=== PATIENT | female | born 1940 | race Caucasian/White ===

== ENCOUNTER → 2018-03-10 10:02 | Outpatient (CLI) | payer MEDICARE, SELFPAY ==
--- NOTE | 2018-03-10 | DI.MG.S_ITS ---
BILATERAL DIGITAL SCREENING MAMMOGRAM 3D/2D WITH CAD: 03/10/2018 CLINICAL: Routine screening. Comparison is made to exams dated: 09/28/2014 mammogram, 09/22/2013 mammogram, and 08/24/2012 mammogram - [facility]. The tissue of both breasts is heterogeneously dense. This may lower the sensitivity of mammography. Current study was also evaluated with a Computer Aided Detection (CAD) system. No significant masses, calcifications, or other findings are seen in either breast. There has been no significant interval change. IMPRESSION: NEGATIVE There is no mammographic evidence of malignancy. A 1 year screening mammogram is recommended. This exam was interpreted at Station ID: [id number]. NOTE: For mammograms, a report in lay terms will be sent to the patient. Approximately 15% of breast malignancies will not be visualized mammographically. In the management of a palpable breast mass, a negative mammogram must not discourage biopsy of a clinically suspicious lesion. Electronically Signed By: Rizwan tomas/bob:03/10/2018 21:45:23 letter sent: Normal Exam ACR BI-RADS Category 1: Negative [id number]
--- NOTE | 2018-03-10 | DI.ECHO.S_ITS ---
[place] [facility]---------+ [facility] +---------+ : : [address] : : : : [id number] : : : : Phone: [phone]---------+ Echocardiogram Report + + :Name: JENNIFER GARCIA Study Date: 03/10/2018 Height: 65 in : :[facility] Exam Location: IS Weight: 115 lb : : Gender: Female BSA: 1.6 m2 : :: 1940 Age: 77 yrs BP: 140/64 mmHg: :Reason For Study: : :Ordering Physician: Dr. Gonzalez : :[place] Performed By: Jessica Xie : :Referring: FITZ GRIFFITH : + + Interpretation Summary The left ventricle is normal in size. The ejection fraction is estimated to be 60-65%. There has been no significant change in LV EF since the previous study. The right ventricle is normal in size and function. The aortic valve is moderately calcified. The aortic valve is not well visualized. The peak aortic velocity is 2.8 m/sec. The aortic valve mean gradient is 18 mmHg. The peak aortic velocity on the previous exam was 2.3 m/sec. sev ratio: 0.34 There is no hemodynamically significant valvular aortic stenosis. There is mild to moderate aortic regurgitation. Compared to the prior echo study, there has been an increase in the severity of aortic regurgitation. Procedure: A two-dimensional transthoracic echocardiogram with color flow and Doppler was performed. The study quality was technically adequate. Comparison is made with the echocardiogram of 01/09/2016. The heart rate ranged between 57-65 bpm during the study. The patient was in normal sinus rhythm during the exam. Left Ventricle: The left ventricle is normal in size. There is normal left ventricular wall thickness. A false chord is noted (normal variant). The ejection fraction is estimated to be 60-65%. There has been no significant change since the previous study. There are no focal wall motion abnormalities. Assessment of diastolic parameters indicates a relaxation abnormality of the left ventricle, consistent with normal filling pressures. Right Ventricle: The right ventricle is normal in size and function. Atria: Both atria are normal in size. Both atria have remained unchanged in size since the prior echo exam. There is no Doppler evidence for an interatrial shunt. Mitral Valve: The mitral valve leaflets appear thickened, but open well. The mitral valve leaflets are slightly calcified. There is mild mitral regurgitation. Compared to the prior echo study, there has been no change in the severity of mitral regurgitation. Aortic Valve: The aortic valve is not well visualized. The aortic valve is moderately calcified. The peak aortic velocity is 2.8 m/sec. The aortic valve mean gradient is 18 mmHg. The peak aortic velocity on the previous exam was 2.3 m/sec. There is no hemodynamically significant valvular aortic stenosis. There is mild to moderate aortic regurgitation. Compared to the prior echo study, there has been an increase in the severity of aortic regurgitation. Tricuspid Valve: The tricuspid valve is normal in structure and function. There is a trace or physiologic amount of tricuspid regurgitation. Pulmonary artery pressures cannot be estimated because of the lack of a measurable TR jet velocity. Pulmonic Valve: The pulmonic valve is not well visualized. Great Vessels: The aortic root is normal size. The ascending aorta could not be visualized. The aortic arch could not be visualized. The pulmonary is not well visualized. The IVC is of normal diameter and collapses greater than 50% with a sniff. This suggests a low right atrial pressure of 3 mm Hg. Pericardium/ Pleura There is no pericardial effusion. There is no pleural effusion. MMode/2D Measurements & Calculations LVIDd: 4.2 cm LVOT diam: 1.8 cm LVIDs: 2.7 cm Ao root diam: 2.5 cm FS: 35.5 % EPSS: 0.39 cm IVSd: 0.74 cm LVPWd: 0.76 cm LV dee. diameter/BSA (cm/m^2): 2.7 LV sys. diameter/BSA (cm/m^2): 1.7 LA A2 area: 15.0 cm2 RA long axis: 4.2 cm LA A4 area: 14.0 cm2 RA area: 10.9 cm2 LA length (vol): 4.4 cm RA vol: 24.2 ml LA vol: 40.3 ml RA : 15.5 ml/m2 LA vol index: 25.8 ml/m2 IVC diam: 1.6 cm RVD1 (basal): 2.7 cm TAPSE: 2.0 cm Doppler Measurements & Calculations Ao V2 max: 277.6 cm/sec LVOT Max Francisco: 107.3 cm/sec Ao V2 mean: 202.2 cm/sec LV V1 max P.6 mmHg Ao max P.8 mmHg LV V1 VTI: 24.4 cm Ao mean P.8 mmHg NAKUL(I,D): 0.87 cm2 Ao V2 VTI: 71.8 cm NAKUL(V,D): 0.99 cm2 sev ratio: 0.34 NAKUL indexed to BSA (cm^2/m^2): 0.56 MV E max francisco: 77.1 cm/sec MV A max francisco: 95.4 cm/sec MV E/A: 0.81 Med Peak E' Francisco: 5.7 cm/sec E/E' med: 13.6 Lat Peak E' Francisco: 5.7 cm/sec E/E' lat: 13.6 E/e' average: 13.6 MV dec time: 0.23 sec Reading Physician:MATEUS
== END ==
PROVIDERS: Family Provider Family Medicine; PCP Family Medicine; Visit Provider Family Medicine
DX: Z12.31 Encounter for screening mammogram for malignant neoplasm of breast (principal); M85.852 Other specified disorders of bone density and structure, left thigh; Z78.0 Asymptomatic menopausal state; E07.9 Disorder of thyroid, unspecified; Z90.722 Acquired absence of ovaries, bilateral
CPT/HCPCS: 77063; 77067; 77080; 93306

== ENCOUNTER → 2020-02-08 13:46 | Outpatient (CLI) | payer MEDICARE, SELFPAY | PROVIDERS: Family Provider Family Medicine; PCP Family Medicine; Referring Provider Family Medicine; Visit Provider Family Medicine | DX: M85.851 Other specified disorders of bone density and structure, right thigh (principal); Z78.0 Asymptomatic menopausal state; E07.9 Disorder of thyroid, unspecified; Z90.722 Acquired absence of ovaries, bilateral | CPT/HCPCS: 77080 ==

== ENCOUNTER → 2020-03-30 16:24 | Outpatient (CLI) | payer MEDICARE, SELFPAY | PROVIDERS: Family Provider Family Medicine; PCP Family Medicine; Referring Provider Family Medicine; Visit Provider Family Medicine | DX: Z12.31 Encounter for screening mammogram for malignant neoplasm of breast (principal); Z53.9 Procedure and treatment not carried out, unspecified reason | CPT/HCPCS: 77063; 77067 ==

== ENCOUNTER → 2021-05-05 14:03 | Outpatient (CLI) | payer MEDICARE, SELFPAY ==
--- NOTE | 2021-05-05 | DI.ECHO.S_ITS ---
[place] +---------+ [facility] +---------+ : : [address] : [address] : [address] : : : : [id number] : : : : Phone: [phone]+ Echocardiogram Report + + :Name: JENNIFER GARCIA Study Date: 05/05/2021 Height: 65 in : :[facility] ReadingLocation: Weight: 118 lb : : Gender: Female BSA: 1.6 m2 : :: 1940 Age: 81 yrs BP: 160/83 mmHg: :Reason For Study: SYMPTOMS AND SIGNS INVOLVING COGNITIVE : :FUNCTION : :Ordering Physician: NACHO, : :FITZ Performed By: Keeley Madrid : :Referring: FITZ GRIFFITH : + + Interpretation Summary The ejection fraction is estimated to be 60-65%. Diastolic parameters suggest probable normal left ventricular diastolic function and normal filling pressures. The right ventricle is normal in size and function. There is severe aortic stenosis. There is mild mitral regurgitation. Unable to estimate PASP. Compared to the prior study dated 03/10/2018, the aortic valve disease has progressed. Procedure: A two-dimensional transthoracic echocardiogram with color flow and Doppler was performed. The study quality was technically adequate. Comparison is made with the echocardiogram of 03/10/2018. The patient was in sinus rhythm with heart rates between 58-70 bpm during the exam. Left Ventricle: The left ventricle is normal in size and wall thickness. The ejection fraction is estimated to be 60-65%. Diastolic parameters suggest probable normal left ventricular diastolic function and normal filling pressures. Right Ventricle: The right ventricle is normal in size and function. Atria: Both atria are normal in size. There is no Doppler evidence for an interatrial shunt. Mitral Valve: The mitral valve leaflets appear mildly thickened, but open well. There is mild mitral regurgitation. Aortic Valve: The aortic valve is heavily calcified. There is severe aortic stenosis. The peak aortic velocity is 4.4 m/sec. The peak aortic velocity on the previous exam was 2.8 m/sec. The aortic valve mean gradient is 53 mmHg. The calculated aortic valve area is 0.76 cm2. No aortic regurgitation is present. Tricuspid Valve: The tricuspid valve is normal in structure and function. There is mild tricuspid regurgitation. Pulmonary artery pressures cannot be estimated because of the lack of a measurable TR jet velocity but the IVC suggests a CVP of around 3 mmHg. Pulmonic Valve: The pulmonic valve is not well seen, but is grossly normal. There is no pulmonic valvular regurgitation. Great Vessels: The aortic root is normal size. The dimensions of the ascending aorta are normal. The IVC is of normal diameter and collapses greater than 50% with a sniff. This suggests a low right atrial pressure of 3 mm Hg. Pericardium/ Pleura There is no pericardial effusion. There is no pleural effusion. MMode/2D Measurements & Calculations LVIDd: 4.1 cm LVOT diam: 2.0 cm LVIDs: 2.7 cm Ao root diam: 2.5 cm FS: 33.4 % Ao Arch Diam (Prox Trans): 2.4 cm IVSd: 0.79 cm LVPWd: 0.70 cm LV dee. diameter/BSA (cm/m^2): 2.6 LV sys. diameter/BSA (cm/m^2): 1.7 LA A2 area: 15.9 cm2 RA long axis: 4.7 cm LA A4 area: 12.9 cm2 RA area: 12.1 cm2 LA length (vol): 4.2 cm RA vol: 26.2 ml LA vol: 40.8 ml RA : 16.6 ml/m2 LA vol index: 25.8 ml/m2 IVC diam: 1.2 cm RVD1 (basal): 2.7 cm TAPSE: 1.8 cm Doppler Measurements & Calculations Ao V2 max: 439.9 cm/sec LVOT Max Francisco: 105.5 cm/sec Ao V2 mean: 352.4 cm/sec LV V1 max P.5 mmHg Ao max P.4 mmHg LV V1 VTI: 27.0 cm Ao mean P.6 mmHg NAKUL(I,D): 0.72 cm2 Ao V2 VTI: 114.8 cm NAKUL(V,D): 0.73 cm2 sev ratio: 0.24 NAKUL indexed to BSA (cm^2/m^2): 0.45 MV E max francisco: 95.5 cm/sec PA V2 max: 107.1 cm/sec MV A max francisco: 115.7 cm/sec PA V2 mean: 73.1 cm/sec MV E/A: 0.83 PA mean P.4 mmHg Med Peak E' Francisco: 6.2 cm/sec PA pr(Accel): 24.2 mmHg E/E' med: 15.4 Lat Peak E' Francisco: 8.6 cm/sec E/E' lat: 11.1 E/e' average: 13.2 MV dec time: 0.24 sec SV(LVOT): 82.5 ml Reading Physician:04:34 PM
--- NOTE | 2021-05-05 | DI.MRI.S_ITS ---
PROCEDURE: MR HEAD/BRAIN WO/W CON INDICATIONS: Other symptoms and signs involving cognitive funct TECHNIQUE: Noncontrast axial T1 spin echo, axial T2 fast spin echo, sagittal and axial FLAIR, coronal T2 fast spin echo, axial gradient echo, axial diffusion and ADC through the brain. After the administration of contrast, axial and coronal T1 spin echo with fat saturation through the brain. COMPARISON: [facility], , CAROTID DOPPLER , 05/05/2021, 14:26. FINDINGS: Image quality: This examination is limited by involuntary motion artifact. CSF spaces: Basal cisterns are patent. No extra-axial fluid collections. Ventricles are normal in size and shape. Brain: No midline shift. No intracranial masses. A few areas of hemosiderin deposition can be seen involving both cerebral hemispheres, as on series 10 images 12 through 18. The hemorrhage is largely seen along the surface of the brain. No abnormal intracranial enhancement. There is cerebral volume loss for age. There is periventricular white matter chronic small vessel ischemic change. The brainstem appears normal. Diffusion-weighted images demonstrate no acute ischemic insults. No chronic ischemic insults. Normal intravascular flow voids are present. Relatively prominent perivascular spaces are noted. Skull and face: Calvarial marrow is normal in signal. Orbits appear normal. Sinuses: Sinuses and mastoids appear clear. IMPRESSION: No findings of acute or subacute infarction can be seen. No masses or abnormal enhancement can be seen. Note is made of age-appropriate brain parenchymal volume loss and chronic small vessel ischemic changes. Mild areas of hemosiderin deposition can be seen, which are largely along the surface of the brain. Please correlate with patient history, including prior hemorrhage or trauma. Dictated by: Simone Arauz M.D. on 05/05/2021 at 16:37 Approved by: Simone Arauz M.D. on 05/05/2021 at 16:40
--- NOTE | 2021-05-05 | DI.US.S_ITS ---
PROCEDURE: US CAROTID DOPPLER BI INDICATIONS: OTHER SYMPTOMS INVOLVING CONGNITIVE FUNCTION TECHNIQUE: Color and pulse Doppler interrogation was performed of both carotid systems, with image documentation and velocity measurements. COMPARISON: None. FINDINGS: Stenosis calculations are based on SRU (Society of Radiologists in Ultrasound) criteria. The flow velocities and the arterial waveforms are normal within both carotid arterial systems. The estimated degree of internal carotid artery stenosis is less than 50%. Antegrade flow is confirmed within both vertebral arteries. IMPRESSION: No hemodynamically significant stenosis is seen. Dictated by: Simone Arauz M.D. on 05/05/2021 at 14:00 Approved by: Simone Arauz M.D. on 05/05/2021 at 14:00
== END ==
PROVIDERS: Family Provider Family Medicine; PCP Family Medicine; Referring Provider Family Medicine; Visit Provider Family Medicine
DX: R41.89 Other symptoms and signs involving cognitive functions and awareness (principal); I08.3 Combined rheumatic disorders of mitral, aortic and tricuspid valves
CPT/HCPCS: 70553; 93306; 93880

== ENCOUNTER → 2021-05-23 08:35 | Outpatient (CLI) | payer MEDICARE, SELFPAY ==
--- NOTE | 2021-05-23 | DI.MRI.S_ITS ---
PROCEDURE: MR STROKE Pre- and post-contrast brain MRI, non-contrast brain MR angiogram, pre- and postcontrast neck MR angiogram INDICATIONS: MEMORY/COGNITIVE CHANGES TECHNIQUE: Brain: Noncontrast axial T1 spin echo, axial T2 fast spin echo, sagittal and axial FLAIR, coronal T2 fast spin echo, axial gradient echo, axial diffusion and ADC through the brain. After the administration of contrast, axial 3D VIBE of the cranial vasculature and brain. Brain MRA: Non-contrast 3-D time of flight MR angiogram, with multiple prlwbkg-nqdiskzdi-qexxhatukx (MIP) reformats performed. Neck MRA: Axial and sagittal TruFISP through the neck. Coronal dynamic MR angiogram during administration of contrast in the arterial and venous phases, with 3-dimenstional sajwlhy-obtgplscy-kcezfksznm (MIP) reformats constructed from subtraction images. COMPARISON: [facility], MR, MR HEAD/BRAIN WO/W CON, 05/05/2021, 16:34. FINDINGS: Image quality: Excellent. BRAIN: CSF spaces: Ventricles are normal in size and shape. Basal cisterns are patent. No extra-axial fluid collections. Brain: No intracranial bleeds or mass effects. Nieves-white matter interface is normal. There is mild, diffuse cerebral volume loss. There are mild periventricular and subcortical white matter chronic microvascular ischemic changes. Small areas of curvilinear GRE weighted hypointensity noted along bilateral frontal and bilateral parietal sulcal surfaces compatible with focal siderosis likely related to remote trace subarachnoid hemorrhage. Finding is stable compared to May 05, 2021. Diffusion weighted images show no acute ischemic insults. Brainstem appears normal. Normal intravascular flow voids are present. No abnormal intracranial enhancement. Skull and face: Calvarial marrow signal is normal. Orbits appear normal. Sinuses: Sinuses and mastoids are clear. BRAIN MR ANGIOGRAM: Anterior circulation: Intracranial internal carotid arteries are normal in size and enhancement. The flow within the paired anterior cerebral arteries is normal and symmetric. The flow within the middle cerebral arteries is normal and symmetric. The anterior communicating artery is seen. No stenoses, occlusions, or aneurysms. Posterior circulation: The visualized portions of the vertebral arteries demonstrate normal caliber, and join to form a normal appearing basilar artery. The flow within the posterior cerebral arteries is normal and symmetric. No stenoses, occlusions, or aneurysms. NECK MR ANGIOGRAM: Carotids: Great vessels demonstrate a conventional anatomy as they arise from the aortic arch. The origins of the common carotid arteries appear patent. The calibers and courses of both common carotid arteries are normal. The bifurcation regions appear normal bilaterally. The internal carotid arteries demonstrate normal course and caliber. Posterior circulation: Atherosclerotic irregularity noted in the origin of the right vertebral artery which causes high-grade stenosis. There is flow in the right vertebral artery distal to the high-grade stenosis in the origin. Origin left vertebral artery appears fully patent. More superior portions of both vertebral arteries demonstrate normal course and caliber, and join to form a normal appearing basilar artery. Miscellaneous: Subclavian arteries appear patent. Pre-contrast images through the neck show no soft tissue abnormalities. IMPRESSION: BRAIN MRI: 1. Stable examination compared to May 05, 2021 with no acute intracranial disease process. 2. No areas of acute or chronic infarction. 3. No abnormal intracranial mass or mass effect. Corinne a 4. No suspicious postcontrast enhancement. 5. Mild, diffuse cerebral volume loss. 6. Mild periventricular and subcortical white matter chronic microvascular ischemic changes. 4. Small areas of focal siderosis involving the bilateral frontal and parietal lobes likely related to remote trace subarachnoid hemorrhage possibly related to prior trauma. Finding is stable compared to the prior exam. BRAIN MR ANGIOGRAM: Negative examination. NECK MR ANGIOGRAM: 1. 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 2. Internal carotid arteries appear fully patent. 3. Left vertebral artery appears fully patent. Dictated by: Quita Saravia MD, PhD on 05/23/2021 at 10:49 Approved by: Quita Saravia MD, PhD on 05/23/2021 at 11:18
== END ==
PROVIDERS: Family Provider Family Medicine; PCP Family Medicine; Referring Provider Family Medicine; Visit Provider Family Medicine
DX: R41.89 Other symptoms and signs involving cognitive functions and awareness (principal)
CPT/HCPCS: 70548; 70553

== ENCOUNTER → 2021-12-05 16:00 | Outpatient (CLI) | payer MEDICARE, SELFPAY ==
--- NOTE | 2021-12-05 | DI.ECHO.S_ITS ---
[place] [facility]---------+ [facility] +---------+ : : [address] : : : : [id number] : : : : Phone: [phone] +---------+ Echocardiogram Report + + :Name: JENNIFER GARCIA Study Date: 12/05/2021 Height: 64 in : :[facility] ReadingLocation: Weight: 130 lb : : Gender: Female BSA: 1.6 m2 : :: 1940 Age: 81 yrs BP: 172/77 mmHg: :Reason For Study: Aortic valve stenosis : :Ordering Physician: MELANIE, : :MARIA M Morales Performed By: Geoffrey Meza : :Referring: MARIA M JIMENEZ : + + Interpretation Summary The ejection fraction is estimated to be 60-65%. Diastolic function could not be accurately assessed due to unobtainable data. The right ventricle is normal in size and function. There is mild mitral regurgitation. The prosthetic aortic valve is well-seated. There is probable normal prosthetic aortic valve function. Pulmonary artery pressures cannot be estimated because of the lack of a measurable TR jet velocity. 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 Procedure: A two-dimensional transthoracic echocardiogram with color flow and Doppler was performed. The study quality was technically adequate. Comparison is made with the echocardiogram of 05/05/2021. Left Ventricle: The left ventricle is normal in size and wall thickness. Left ventricular systolic function is normal. The ejection fraction is estimated to be 60-65%. There are no focal wall motion abnormalities. Diastolic function could not be accurately assessed due to unobtainable data. Right Ventricle: The right ventricle is normal in size and function. Atria: Both atria are normal in size. The interatrial septum grossly appears intact with no obvious evidence for an atrial septal defect. Mitral Valve: The mitral valve is normal in structure and function. There is mild mitral regurgitation. Aortic Valve: There is trace perivalvular regurgitation around the prosthetic aortic valve. There is probable normal prosthetic aortic valve function. The prosthetic aortic valve is well-seated. The aortic valve mean gradient is 20 mmHg. Tricuspid Valve: The tricuspid valve is normal in structure and function. There is trace tricuspid regurgitation. Pulmonary artery pressures cannot be estimated because of the lack of a measurable TR jet velocity. Pulmonic Valve: The pulmonic valve is not well visualized. There is no pulmonic valvular regurgitation. Great Vessels: The aortic root is not well visualized. The ascending aorta could not be visualized. The IVC is of normal diameter and collapses greater than 50% with a sniff. This suggests a low right atrial pressure of 3 mm Hg. Pericardium/ Pleura There is no pericardial effusion. There is no pleural effusion. MMode/2D Measurements & Calculations LVIDd: 4.3 cm LA A2 area: 15.4 cm2 LVIDs: 2.7 cm LA A4 area: 14.3 cm2 FS: 37.3 % LA length (vol): 4.6 cm IVSd: 0.80 cm LA vol: 40.7 ml LVPWd: 0.81 cm LA vol index: 25.0 ml/m2 LV dee. diameter/BSA (cm/m^2): 2.6 LV sys. diameter/BSA (cm/m^2): 1.6 RA long axis: 4.6 cm TAPSE: 1.9 cm RA area: 12.6 cm2 RA vol: 29.7 ml RA : 18.2 ml/m2 IVC diam: 2.0 cm Doppler Measurements & Calculations Ao V2 max: 300.8 cm/sec LVOT Max Francisco: 118.6 cm/sec Ao V2 mean: 208.5 cm/sec LV V1 max P.6 mmHg Ao max P.2 mmHg LV V1 VTI: 26.4 cm Ao mean P.6 mmHg sev ratio: 0.41 Ao V2 VTI: 65.1 cm MV E max francisco: 98.1 cm/sec MV A max francisco: 126.7 cm/sec MV E/A: 0.77 Med Peak E' Francisco: 6.2 cm/sec E/E' med: 15.7 Lat Peak E' Francisco: 7.9 cm/sec E/E' lat: 12.3 E/e' average: 14.0 MV dec time: 0.22 sec Reading Physician:02:13 PM
== END ==
PROVIDERS: Family Provider Family Medicine; PCP Family Medicine; Referring Provider Internal Medicine Cardiovascular Disease; Visit Provider Internal Medicine Cardiovascular Disease
DX: I34.0 Nonrheumatic mitral (valve) insufficiency (principal); Z95.2 Presence of prosthetic heart valve
CPT/HCPCS: 93306